=== PATIENT | female | born 1960 | race Caucasian/White ===

== ENCOUNTER → 2022-08-16 12:10 | Outpatient (BNVA) | payer MEDICARE, SELFPAY | PROVIDERS: PCP Internal Medicine; Visit Provider Psychiatry & Neurology Psychiatry | DX: F31.11 Bipolar disorder, current episode manic without psychotic features, mild (principal); I10 Essential (primary) hypertension; E78.00 Pure hypercholesterolemia, unspecified | CPT/HCPCS: 90833; 99212 ==

== ENCOUNTER → 2022-09-18 13:33 | Outpatient (BNVA) | payer MEDICARE, SELFPAY | PROVIDERS: PCP Internal Medicine; Visit Provider Psychiatry & Neurology Psychiatry | DX: F31.11 Bipolar disorder, current episode manic without psychotic features, mild (principal); I10 Essential (primary) hypertension; E78.00 Pure hypercholesterolemia, unspecified | CPT/HCPCS: 99212 ==

== ENCOUNTER → 2022-10-25 12:11 | Outpatient (BNVA) | payer MEDICARE, SELFPAY | PROVIDERS: PCP Internal Medicine; Visit Provider Psychiatry & Neurology Psychiatry | DX: F31.75 Bipolar disorder, in partial remission, most recent episode depressed (principal); G43.909 Migraine, unspecified, not intractable, without status migrainosus; I10 Essential (primary) hypertension; E78.00 Pure hypercholesterolemia, unspecified | CPT/HCPCS: 90833; Q3014 ==

== ENCOUNTER → 2023-02-26 13:54 | Outpatient (BNVA) | payer MEDICARE, SELFPAY | PROVIDERS: PCP Internal Medicine; Visit Provider Psychiatry & Neurology Psychiatry | DX: F31.75 Bipolar disorder, in partial remission, most recent episode depressed (principal); F43.12 Post-traumatic stress disorder, chronic | CPT/HCPCS: 90833; 99212 ==

== ENCOUNTER → 2023-03-28 12:16 | Outpatient (BNVA) | payer MEDICARE, SELFPAY | PROVIDERS: PCP Internal Medicine; Visit Provider Psychiatry & Neurology Psychiatry | DX: F43.12 Post-traumatic stress disorder, chronic (principal); F31.75 Bipolar disorder, in partial remission, most recent episode depressed | CPT/HCPCS: Q3014 ==

== ENCOUNTER 2023-06-20 16:13 | Outpatient (AMB) | payer MEDICARE, SELFPAY ==
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
== END 2023-06-20 16:13 | disposition home or self-care (01) ==
LOC: HO.HOP 16:13
PROVIDERS: PCP Internal Medicine; Visit Provider Psychiatry & Neurology Psychiatry
DX: F43.12 Post-traumatic stress disorder, chronic (principal); F31.75 Bipolar disorder, in partial remission, most recent episode depressed
CPT/HCPCS: 90833; 99213

== ENCOUNTER → 2023-06-20 16:13 | Outpatient (BNVA) | payer MEDICARE, SELFPAY | PROVIDERS: PCP Internal Medicine; Visit Provider Psychiatry & Neurology Psychiatry | DX: F43.12 Post-traumatic stress disorder, chronic (principal); F31.75 Bipolar disorder, in partial remission, most recent episode depressed | CPT/HCPCS: 90833 ==

== ENCOUNTER 2023-08-28 13:50 | Outpatient (AMB) | payer MEDICARE, SELFPAY ==
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
== END 2023-08-28 15:53 | disposition home or self-care (01) ==
LOC: HO.HOP 13:50
PROVIDERS: PCP Internal Medicine; Visit Provider Psychiatry & Neurology Psychiatry
DX: F33.1 Major depressive disorder, recurrent, moderate (principal)
CPT/HCPCS: 99443

== ENCOUNTER → 2023-08-28 13:50 | Outpatient (BNVA) | payer MEDICARE, SELFPAY | PROVIDERS: PCP Internal Medicine; Visit Provider Psychiatry & Neurology Psychiatry ==

== ENCOUNTER → 2023-11-04 16:38 | Outpatient (BNVA) | payer MEDICARE, SELFPAY | PROVIDERS: PCP Internal Medicine; Visit Provider Psychiatry & Neurology Psychiatry ==

== ENCOUNTER → 2023-11-24 17:48 | Outpatient (BNVA) | payer MEDICARE, SELFPAY | PROVIDERS: PCP Internal Medicine; Visit Provider Psychiatry & Neurology Psychiatry ==

== ENCOUNTER 2024-02-11 12:40 | Outpatient (AMB) | payer MEDICARE, SELFPAY ==
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
== END 2024-02-11 12:40 | disposition home or self-care (01) ==
LOC: HO.HOP 12:40
PROVIDERS: PCP Internal Medicine; Visit Provider Psychiatry & Neurology Psychiatry
DX: F43.12 Post-traumatic stress disorder, chronic (principal); F31.75 Bipolar disorder, in partial remission, most recent episode depressed
CPT/HCPCS: 90833; 99213

== ENCOUNTER → 2024-02-11 12:40 | Outpatient (BNVA) | payer MEDICARE, SELFPAY | PROVIDERS: PCP Internal Medicine; Visit Provider Psychiatry & Neurology Psychiatry | DX: F43.12 Post-traumatic stress disorder, chronic (principal); F31.75 Bipolar disorder, in partial remission, most recent episode depressed | CPT/HCPCS: 99212 ==

== ENCOUNTER 2024-04-29 15:48 | Outpatient (AMB) | payer MEDICARE, SELFPAY ==
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
== END 2024-04-29 17:56 | disposition home or self-care (01) ==
LOC: HO.HOP 15:48
PROVIDERS: PCP Internal Medicine; Visit Provider Psychiatry & Neurology Psychiatry
DX: F43.12 Post-traumatic stress disorder, chronic (principal); F31.70 Bipolar disorder, currently in remission, most recent episode unspecified
CPT/HCPCS: 90833; 99213

== ENCOUNTER → 2024-04-29 15:48 | Outpatient (BNVA) | payer MEDICARE, SELFPAY | PROVIDERS: PCP Internal Medicine; Visit Provider Psychiatry & Neurology Psychiatry ==